=== PATIENT | female | born 1960 | race Caucasian/White ===

== ENCOUNTER 2019-01-31 06:17 | Day surgery (SDC) | payer OTHER, MEDICAID ==
[~2019-01-31] VITALS: Ht 160 cm; Wt 46.4 kg
[~2019-01-31 06:17] MED LIST: ACET-784 PO; BACL10TA PO; BENZ-51 PO; BISA10SU61 RC; DIMETAPP PO; DIPH25CA85 PO; DOCU250C91 PO; FE RC; HYDR28.45 TP; HYDR30OI13 TP; IBUP200C93 PO; LEVO50 PO; LOPE2 PO; MELO-107 PO; MOM30 PO; MYLANTA PO; PHEN-879 PO; PHEN20SP MM; PROP10DR15 OU; RINGERS SOLUTION,LACTATED 1,000 ML IV ONE; SENN-176 PO; VITAD1000 PO
[2019-01-31] MEDS ORDERED: ROCURONIUM BROMIDE 10 MG/ML 5 ML VIAL IVP ONE (06:18)
[2019-01-31] MEDS ORDERED: LIDOCAINE/PF 2% 5 ML VIAL INJ ONE (06:18)
[2019-01-31] MEDS ORDERED: FentaNYL CITRATE-PF 100 MCG/2 ML VIAL IVP ONE (06:18)
[2019-01-31] MEDS ORDERED: PROPOFOL 1% 20 ML VIAL IVP ONE (06:18)
[2019-01-31] MEDS ORDERED: NEOSTIGMINE METHYLSULFATE 1 MG/ML 10 ML VIAL IVP ONE (06:18)
[2019-01-31] MEDS ORDERED: GLYCOPYRROLATE 0.2 MG/ML VIAL IVP ONE (06:18)
[2019-01-31] MEDS ORDERED: ONDANSETRON HCL 4 MG/2 ML VIAL IVP ONE (06:18)
[2019-01-31] MEDS ORDERED: RINGERS SOLUTION,LACTATED 1,000 ML IV ONE (07:00)
[2019-01-31] MEDS ORDERED: AMPICILLIN SODIUM 1 GM/VIAL ONE (07:14)
[2019-01-31 07:19] LABS: BASOPHILS % (AUTO) 0.6 % (0.0-2.0); EOSINOPHILS % (AUTO) 1.8 % (1.0-6.0); HEMATOCRIT 37.2 % (36-46); HEMOGLOBIN 12.2 g/dL (12.0-16.0); LYMPHOCYTES # (AUTO) 2.6 K/uL (1.0-4.8); LYMPHOCYTES % (AUTO) 33.8 % (22.0-44.0); MEAN CORPUSCULAR HEMOGLOBIN 27.1 pg (26.0-34.0); MEAN CORPUSCULAR VOLUME 82 fL (80-100); MONOCYTES # (AUTO) 0.6 K/uL (0.1-1.0); MONOCYTES % (AUTO) 8.3 % (2.0-9.0); NEUTROPHILS # (AUTO) 4.3 K/uL (1.8-7.7); NEUTROPHILS % (AUTO) 55.5 % (40.0-70.0); PLATELET COUNT (AUTO) 255 K/uL (150-450); RED BLOOD CELL COUNT(AUTO) 4.53 MIL/uL (4.00-5.20); RED CELL DISTRIBUTION WIDTH 15.4 % (11.5-14.5)
[2019-01-31 07:27] LABS: ANION GAP 10 mmol/L (8-16); CALCIUM, TOTAL 9.8 mg/dL (8.8-10.5); CARBON DIOXIDE 28 mmol/L (22-29); CHLORIDE 107 mmol/L (98-107); CREATININE 0.64 mg/dL (0.60-1.30); GLOMERULAR FILTR. RATE CALC > 60 mL/min (>60); GLUCOSE,RANDOM 107 mg/dL (70-110); POTASSIUM 4.3 mmol/L (3.5-5.1); SODIUM SERUM 145 mmol/L (136-145); UREA NITROGEN, BLOOD 23 mg/dL (7-18)
[2019-01-31 07:33] LABS: ALANINE AMINOTRANSFERASE 22 U/L (12-78); ALBUMIN 3.8 g/dL (3.4-5.0); ALKALINE PHOSPHATASE 72 U/L (46-116); ASPARTATE AMINOTRANSFERASE 15 U/L (15-37); BILIRUBIN,TOTAL 0.5 mg/dL (0.1-1.0); TOTAL PROTEIN, SERUM 7.6 g/dL (6.4-8.2)
[2019-01-31 07:51] LABS: PROTHROMBIN TIME 10.8 SEC (9.4-11.6)
== END 2019-01-31 14:35 | disposition short-term general hospital (02) ==
LOC: SURGERY 06:17
PROVIDERS: ATTEND Dentist General Practice
DX: K05.30 Chronic periodontitis, unspecified (principal); G80.9 Cerebral palsy, unspecified
CPT/HCPCS: 36415; 41899; 71045; 80053; 85025; 85610; 85730; 93005; J0290; J2405; J2704; J3010; J3490 ×3; J7120

== ENCOUNTER 2021-01-02 06:53 | Day surgery (SDC) | payer OTHER, MEDICAID ==
[~2021-01-02] VITALS: Ht 154.9 cm; Wt 44.5 kg
[~2021-01-02 06:53] MED LIST changes: +CHOL100018 PO; +DOCU-350 PO; -DOCU250C91 PO; -RINGERS SOLUTION,LACTATED 1,000 ML IV ONE; -SENN-176 PO; +SENN-277 PO; -VITAD1000 PO
[2021-01-02] MEDS ORDERED: ONDANSETRON HCL 4 MG/2 ML VIAL IVP ONE (06:54)
[2021-01-02] MEDS ORDERED: PROPOFOL 1% 20 ML VIAL IVP ONE (06:54)
[2021-01-02] MEDS ORDERED: NALOXONE HCL 0.4 MG/ML VIAL IVP ONE (06:54)
[2021-01-02] MEDS ORDERED: FentaNYL CITRATE PF 100 MCG/2 ML VIAL IVP ONE (06:54)
[2021-01-02] MEDS ORDERED: LIDOCAINE/PF 2% 5 ML VIAL IM ONE (06:54)
[2021-01-02] MEDS ORDERED: ROCURONIUM BROMIDE 10 MG/ML 5 ML VIAL IVP ONE (06:54)
[2021-01-02] MEDS ORDERED: EPHEDrine SULFATE 50 MG/ML VIAL IM ONE (06:54)
[2021-01-02] MEDS ORDERED: LIDOCAINE/PF 2% 5 ML SYRINGE IVP ONE (06:54)
[2021-01-02] MEDS ORDERED: PHENYLEPHRINE HCL 10 MG/ML VIAL IVP ONE (06:54)
[2021-01-02] MEDS ORDERED: SUGAMMADEX SODIUM 200 MG/2 ML VIAL IVP ONE (06:54)
[2021-01-02] MEDS ORDERED: RINGERS SOLUTION,LACTATED 1,000 ML IV ONE ×3 (07:00→10:35)
[2021-01-02 07:50] LABS: GLUCOMETER DEV NAME(LOC) SDS.; GLUCOSE,POINT OF CARE 102 MG/DL (70-110)
[2021-01-02] MEDS ORDERED: MELO-107 PO (07:50)
[2021-01-02] MEDS ORDERED: LEVO50 PO (07:50)
[2021-01-02] MEDS ORDERED: AMPICILLIN SODIUM 1 GM/VIAL ONE (08:00)
[2021-01-02] MEDS ORDERED: SODIUM CHLORIDE 0.9% 100 ML ONE (08:00)
[2021-01-02 08:11] LABS: BASOPHILS % (AUTO) 0.3 % (0.0-2.0); EOSINOPHILS % (AUTO) 1.4 % (1.0-6.0); HEMATOCRIT 33.4 % (36-46); HEMOGLOBIN 11.6 g/dL (12.0-16.0); LYMPHOCYTES # (AUTO) 2.7 K/uL (1.0-4.8); LYMPHOCYTES % (AUTO) 28.7 % (22.0-44.0); MEAN CORPUSCULAR HEMOGLOBIN 29.3 pg (26.0-34.0); MEAN CORPUSCULAR HGB CONC 34.8 G/dL (31.0-37.0); MEAN CORPUSCULAR VOLUME 84 fL (80-100); MONOCYTES # (AUTO) 0.6 K/uL (0.1-1.0); MONOCYTES % (AUTO) 6.3 % (2.0-9.0); NEUTROPHILS % (AUTO) 63.3 % (40.0-70.0); PLATELET COUNT (AUTO) 220 K/uL (150-450); RED BLOOD CELL COUNT(AUTO) 3.97 MIL/uL (4.00-5.20); RED CELL DISTRIBUTION WIDTH 13.8 % (11.5-14.5)
[2021-01-02 08:14] LABS: ANION GAP 7 mmol/L (8-16); CALCIUM, TOTAL 9.1 mg/dL (8.8-10.5); CARBON DIOXIDE 30 mmol/L (22-29); CHLORIDE 108 mmol/L (98-107); CREATININE 0.59 mg/dL (0.60-1.30); GLOMERULAR FILTR. RATE CALC > 60 mL/min (>60); GLUCOSE,RANDOM 102 mg/dL (70-110); POTASSIUM 3.5 mmol/L (3.5-5.1); SODIUM SERUM 145 mmol/L (136-145); UREA NITROGEN, BLOOD 31 mg/dL (7-18)
[2021-01-02 08:18] LABS: COVID AG,FIA SOURCE NASOPHARYNGEAL
[2021-01-02 08:23] LABS: ALANINE AMINOTRANSFERASE 16 U/L (12-78); ALBUMIN 3.5 g/dL (3.4-5.0); ALKALINE PHOSPHATASE 58 U/L (46-116); ASPARTATE AMINOTRANSFERASE 11 U/L (15-37); BILIRUBIN,TOTAL 0.7 mg/dL (0.1-1.0); TOTAL PROTEIN, SERUM 7.1 g/dL (6.4-8.2)
[2021-01-02 08:27] LABS: INR 1.1 (0.9-1.1); PROTHROMBIN TIME 11.9 SEC (9.4-11.6)
== END 2021-01-02 12:50 | disposition home or self-care (01) ==
LOC: SURGERY 06:53
PROVIDERS: ATTEND Dentist General Practice
DX: K05.30 Chronic periodontitis, unspecified (principal); F03.90 Unspecified dementia, unspecified severity, without behavioral disturbance, psychotic disturbance, mood disturbance, and anxiety; G80.9 Cerebral palsy, unspecified; F41.9 Anxiety disorder, unspecified; Z88.2 Allergy status to sulfonamides; E03.9 Hypothyroidism, unspecified; Z88.6 Allergy status to analgesic agent; Z98.890 Other specified postprocedural states
CPT/HCPCS: 36415; 41899; 71045; 80053; 82962; 85025; 85610; 85730; 87426; 93005; C9803; J0290; J2310; J2370; J2704; J3010; J3490 ×3; J7050; J7120; A9575; J2405

== ENCOUNTER 2023-04-15 06:32 | Day surgery (SDC) | payer OTHER, MEDICAID ==
[~2023-04-15] VITALS: Ht 154.9 cm; Wt 44.5 kg
[~2023-04-15 06:32] MED LIST changes: +BENZ-227 PO; -BENZ-51 PO; -FE RC; -HYDR28.45 TP; +HYDR30CR39 TP; +LOPE-232 PO; -LOPE2 PO; +MAGN-169 PO; -MELO-107 PO; +MELO-381 PO; -MOM30 PO; +NA P266E RC; +RINGERS SOLUTION,LACTATED 1,000 ML IV ONE
[2023-04-15] MEDS ORDERED: MENT3.5O TP (07:21)
[2023-04-15] MEDS ORDERED: FERR325T27 PO (07:21)
[2023-04-15] MEDS ORDERED: LOPE-232 PO (07:22)
[2023-04-15] MEDS ORDERED: RINGERS SOLUTION,LACTATED 1,000 ML IV ONE (07:53)
[2023-04-15] MEDS ORDERED: AMPICILLIN SODIUM 2 GM/NS 100 ML IV ONE (07:55)
[2023-04-15 08:01] LABS: BASOPHILS % (AUTO) 0.5 % (0.0-2.0); EOSINOPHILS % (AUTO) 1.5 % (1.0-6.0); HEMATOCRIT 36.6 % (36-46); HEMOGLOBIN 12.3 g/dL (12.0-16.0); LYMPHOCYTES # (AUTO) 2.5 K/uL (1.0-4.8); LYMPHOCYTES % (AUTO) 28.1 % (22.0-44.0); MEAN CORPUSCULAR HEMOGLOBIN 28.2 pg (26.0-34.0); MEAN CORPUSCULAR HGB CONC 33.5 G/dL (31.0-37.0); MEAN CORPUSCULAR VOLUME 84 fL (80-100); MONOCYTES # (AUTO) 0.7 K/uL (0.1-1.0); NEUTROPHILS # (AUTO) 5.4 K/uL (1.8-7.7); NEUTROPHILS % (AUTO) 61.9 % (40.0-70.0); PLATELET COUNT (AUTO) 235 K/uL (150-450); RED BLOOD CELL COUNT(AUTO) 4.35 MIL/uL (4.00-5.20); RED CELL DISTRIBUTION WIDTH 13.9 % (11.5-14.5)
[2023-04-15 08:12] LABS: INR 1.1 (0.9-1.1); PROTHROMBIN TIME 11.4 SEC (9.4-11.6)
[2023-04-15 08:13] LABS: ANION GAP 6 mmol/L (8-16); CALCIUM, TOTAL 9.7 mg/dL (8.8-10.5); CARBON DIOXIDE 31 mmol/L (22-29); CHLORIDE 102 mmol/L (98-107); CREATININE 0.61 mg/dL (0.60-1.30); GLOMERULAR FILTR. RATE CALC > 60 mL/min (>60); GLUCOSE,RANDOM 101 mg/dL (70-110); POTASSIUM 4.1 mmol/L (3.5-5.1); SODIUM SERUM 139 mmol/L (136-145)
[2023-04-15 08:17] LABS: ALANINE AMINOTRANSFERASE 15 U/L (12-78); ALBUMIN 3.3 g/dL (3.4-5.0); ALKALINE PHOSPHATASE 79 U/L (46-116); ASPARTATE AMINOTRANSFERASE 23 U/L (15-37); BILIRUBIN,TOTAL 0.5 mg/dL (0.1-1.0); TOTAL PROTEIN, SERUM 7.3 g/dL (6.4-8.2)
[2023-04-15] MEDS ORDERED: SUGAMMADEX SODIUM 200 MG/2 ML VIAL IVP ONE (09:00)
[2023-04-15] MEDS ORDERED: LIDOCAINE/PF 2% 5 ML VIAL ONE (09:00)
[2023-04-15] MEDS ORDERED: ONDANSETRON HCL 4 MG/2 ML VIAL ONE (09:00)
[2023-04-15] MEDS ORDERED: PROPOFOL 1% 20 ML VIAL IVP ONE (09:00)
[2023-04-15] MEDS ORDERED: EPHEDrine SULFATE 50 MG/ML VIAL ONE (09:00)
[2023-04-15] MEDS ORDERED: 0.9% SODIUM CHLORIDE 10 ML VIAL ONE (09:00)
[2023-04-15] MEDS ORDERED: ROCURONIUM BROMIDE 10 MG/ML 5 ML VIAL ONE (09:00)
[2023-04-15] MEDS ORDERED: DEXAMETHASONE SOD PHOS 4 MG/ML VIAL ONE (09:00)
[2023-04-15] MEDS ORDERED: FentaNYL CITRATE PF 100 MCG/2 ML VIAL IVP ONE (12:00)
== END 2023-04-15 12:30 | disposition home or self-care (01) ==
LOC: SURGERY 06:32
PROVIDERS: ATTEND Dentist General Practice
DX: K05.30 Chronic periodontitis, unspecified (principal); K03.6 Deposits [accretions] on teeth; K02.9 Dental caries, unspecified; F41.9 Anxiety disorder, unspecified; K59.00 Constipation, unspecified; E03.9 Hypothyroidism, unspecified; G82.50 Quadriplegia, unspecified; Z79.01 Long term (current) use of anticoagulants; Z79.899 Other long term (current) drug therapy; Z98.890 Other specified postprocedural states
CPT/HCPCS: 41899; 71045; 80053; 85025; 85610; 85730; 36415; 93005; J0290; J2704; J1100; J3490 ×3; J3010; J2405; Q9967; J7120

== ENCOUNTER 2024-06-15 06:21 | Day surgery (SDC) | payer OTHER, MEDICAID ==
[~2024-06-15] VITALS: Ht 154.9 cm; Wt 47.7 kg
[~2024-06-15 06:21] MED LIST changes: -BACL10TA PO; -BENZ-227 PO; -BISA10SU61 RC; -CHOL100018 PO; +DEXAMETHASONE SOD PHOS 4 MG/ML VIAL ONE; -DIMETAPP PO; -DIPH25CA85 PO; -DOCU-350 PO; +FERR325T27 PO; -HYDR30CR39 TP; -HYDR30OI13 TP; -IBUP200C93 PO; +LIDOCAINE/PF 2% 5 ML VIAL ONE; -MAGN-169 PO; +MELO-107 PO; -MELO-381 PO; +MENT3.5O TP; -NA P266E RC; +ONDANSETRON HCL 4 MG/2 ML VIAL ONE; -PHEN-879 PO; -PHEN20SP MM; -PROP10DR15 OU; +PROPOFOL 1% 20 ML VIAL IVP ONE; +ROCURONIUM BROMIDE 10 MG/ML 5 ML VIAL ONE; +SUGAMMADEX SODIUM 200 MG/2 ML VIAL IVP ONE
[2024-06-15] MEDS ORDERED: SODIUM CHLORIDE 0.9% 1,000 ML IV ONE (07:00)
[2024-06-15] MEDS ORDERED: FLUO-418 PO (07:51)
[2024-06-15] MEDS ORDERED: CHOL25TA4 PO (07:51)
[2024-06-15 07:52] LABS: BASOPHILS % (AUTO) 0.4 % (0.0-2.0); EOSINOPHILS % (AUTO) 1.8 % (1.0-6.0); HEMATOCRIT 35.7 % (36-46); HEMOGLOBIN 11.9 g/dL (12.0-16.0); LYMPHOCYTES # (AUTO) 2.3 K/uL (1.0-4.8); LYMPHOCYTES % (AUTO) 28.2 % (22.0-44.0); MEAN CORPUSCULAR HEMOGLOBIN 28.2 pg (26.0-34.0); MEAN CORPUSCULAR HGB CONC 33.3 G/dL (31.0-37.0); MEAN CORPUSCULAR VOLUME 85 fL (80-100); MONOCYTES # (AUTO) 0.7 K/uL (0.1-1.0); MONOCYTES % (AUTO) 8.6 % (2.0-9.0); PLATELET COUNT (AUTO) 216 K/uL (150-450); RED BLOOD CELL COUNT(AUTO) 4.23 MIL/uL (4.00-5.20); RED CELL DISTRIBUTION WIDTH 14.9 % (11.5-14.5); WHITE BLOOD COUNT (AUTO) 8.3 K/uL (4.5-11.0)
[2024-06-15] MEDS ORDERED: BENZ-227 PO (07:53)
[2024-06-15 08:04] LABS: INR 1.1 (0.9-1.1); PROTHROMBIN TIME 11.4 SEC (9.4-11.6)
[2024-06-15 08:13] LABS: ANION GAP 10 mmol/L (8-16); CARBON DIOXIDE 28 mmol/L (22-29); CHLORIDE 104 mmol/L (98-107); CREATININE 0.55 mg/dL (0.60-1.30); GLOMERULAR FILTR. RATE CALC > 60 mL/min (>60); GLUCOSE,RANDOM 83 mg/dL (70-110); POTASSIUM 3.6 mmol/L (3.5-5.1); SODIUM SERUM 142 mmol/L (136-145); UREA NITROGEN, BLOOD 28 mg/dL (7-18)
[2024-06-15] MEDS ORDERED: AMPICILLIN SODIUM 2 GM/NS 100 ML IV ONE (08:18)
[2024-06-15 08:19] LABS: ALANINE AMINOTRANSFERASE 15 U/L (12-78); ALBUMIN 3.1 g/dL (3.4-5.0); ALKALINE PHOSPHATASE 77 U/L (46-116); ASPARTATE AMINOTRANSFERASE 14 U/L (15-37); BILIRUBIN,TOTAL 0.4 mg/dL (0.1-1.0); TOTAL PROTEIN, SERUM 7.3 g/dL (6.4-8.2)
[2024-06-15] MEDS: RINGERS SOLUTION,LACTATED 1,000 ML IV ONE (10:46)
[2024-06-15] MEDS ORDERED: LEVO75 PO (12:10)
[2024-06-15] MEDS ORDERED: FentaNYL CITRATE PF 100 MCG/2 ML VIAL IVP PRN (12:15)
[2024-06-15] MEDS ORDERED: OXYGEN THERAPY IH SCH (20:00)
== END 2024-06-15 14:35 | disposition home or self-care (01) ==
LOC: SURGERY 06:21
PROVIDERS: ATTEND Dentist General Practice
DX: K05.30 Chronic periodontitis, unspecified (principal); K02.9 Dental caries, unspecified; R94.31 Abnormal electrocardiogram [ECG] [EKG]; E03.9 Hypothyroidism, unspecified; G83.9 Paralytic syndrome, unspecified; G25.5 Other chorea; D64.9 Anemia, unspecified; Z79.899 Other long term (current) drug therapy
CPT/HCPCS: 41899; 71045; 80053; 85025; 85610; 85730; 36415; 93005; J0290; J2704; J1100; J3490 ×3; J2405; J7120